=== PATIENT | female | born 1985 | race Caucasian/White ===

== ENCOUNTER 2021-02-18 21:12 | Emergency (ER) | payer OTHER ==
[2021-02-18 22:20] LABS: INR 0.97 (0.9-1.2); PROTHROMBIN TIME 12.3 SECONDS (11.8-13.4); PTT 40.2 SECONDS (24.4-34.7)
[2021-02-18 22:23] LABS: ALBUMIN 3.5 g/dL (3.4-5.0); BILIRUBIN - TOTAL 0.2 mg/dL (0.2-1.0); BUN/CREAT RATIO (CALC) 16.4 RATIO; CREATININE 0.55 mg/dL (0.51-0.95); GLOBULIN (CALCULATION) 3.8 g/dL; POTASSIUM 3.6 mmol/L (3.5-5.1); TOTAL PROTEIN 7.3 g/dL (6.4-8.2)
[2021-02-18 22:26] LABS: BASOPHIL 0.8 % (0-2); EOSINOPHIL 5.4 % (0-5); HCT 37.6 % (37.0-47.0); HGB 12.7 g/dl (12.5-16.0); LYMPHOCYTE 30.1 % (15-48); MCH 32.1 pg (25.0-31.0); MCHC 33.8 g/dL (32.0-36.0); MCV 94.9 fL (78.0-100.0); MONOCYTE 6.4 % (0-12); MPV 10.9 fL (6.0-9.5); NRBC 0; PLT 253 K/uL (150-400); RBC 3.96 M/uL (4.20-5.40); RDW 13.2 % (11.5-14.0); WBC 15.5 K/uL (4.0-10.5)
== END 2021-02-18 22:45 | disposition left against medical advice (07) ==
LOC: FER 21:12
PROVIDERS: Internal Medicine
DX: R07.9 Chest pain, unspecified (principal); Z53.8 Procedure and treatment not carried out for other reasons
CPT/HCPCS: 36415; 80053; 84484; 85025; 85610; 85730; 93005